=== PATIENT | female | born 1990 | race American Indian/Alaskan Native ===

== ENCOUNTER 2016-07-15 09:47 | Emergency (ER) | payer SELFPAY ==
[2016-07-15 09:58] VITALS: BP 117/78
--- NOTE | 2016-07-15 12:53 | Emergency Department Report ---
ED ENT HPI - General Chief complaint: Dental/Oral Stated complaint: TOOTHACHE Time Seen by Provider: 07/15/16 12:16 Source: patient Mode of arrival: Ambulatory Limitations: No Limitations - History of Present Illness Initial comments: PT c/o intermittent tooth/ jaw pain x 4 months. PT states the pain has been constant for 1 month. PT states her last dental visit was 1 year ago. PT states she has tried using Tylenol #3, [place], and oragel for the pain. PT states she is currently using a toothpaste with peroxide. MD complaint: tooth pain Onset/Timin -: Gradual, month(s) Location: other (R lower teeth, L upper and lower teeth pain ) Severity scale (0 -10): 8 Quality: aching, sharp Improves with: other medication ([place] ) Worsens with: eating Context- Dental: poor dental care Associated Symptoms: toothache. denies: fever, cough, gum swelling - Related Data Previous Rx's Medication Instructions Recorded Last Taken Type Cephalexin [Keflex] 500 mg PO BID #14 capsule 06/01/14 Unknown Rx Allergies Allergy/AdvReac Type Severity Reaction Status Date / Time No Known Allergies Allergy Unverified 06/01/14 16:32 ED Dental HPI - General Chief complaint: Dental/Oral Stated complaint: TOOTHACHE Time Seen by Provider: 07/15/16 12:16 Source: patient Mode of arrival: Ambulatory Limitations: No Limitations - Related Data Previous Rx's Medication Instructions Recorded Last Taken Type Cephalexin [Keflex] 500 mg PO BID #14 capsule 06/01/14 Unknown Rx Allergies Allergy/AdvReac Type Severity Reaction Status Date / Time No Known Allergies Allergy Unverified 06/01/14 16:32 ED Review of Systems ROS: Stated complaint: TOOTHACHE Other details as noted in HPI Comment: All other systems reviewed and negative Constitutional: denies: chills, fever ENT: ear pain (L @ times ), dental pain Gastrointestinal: denies: abdominal pain Skin: denies: rash Neurological: headache (at times ) ED Past Medical Hx - Past Medical History Previous Medical History?: Yes Additional medical history: Childbirth by - Surgical History Additional Surgical History: x 1 - Social History Smoking Status: Current Every Day Smoker Substance Use Type: Alcohol, Non Opiate Pain - Medications Home Medications: Home Medications Medication Instructions Recorded Confirmed Last Taken Type Cephalexin [Keflex] 500 mg PO BID #14 capsule 06/01/14 Unknown Rx ED Physical Exam - General Limitations: No Limitations General appearance: alert, in no apparent distress - Head Head exam: Present: atraumatic, normocephalic, normal inspection - Eye Eye exam: Present: normal appearance, PERRL, EOMI. Absent: conjunctival injection - ENT ENT exam: Present: normal orophraynx, mucous membranes moist, TM's normal bilaterally, normal external ear exam - Expanded ENT Exam Expanded Mouth exam: Absent: drooling, trismus Teeth exam: Present: dental caries (multiple ), dental tenderness # (tooth 17 with significant decay and tenderness. No dental abscess noted. ), other (PT with red food debris on multiple teeth) - Neck Neck exam: Present: normal inspection, full ROM. Absent: tenderness, lymphadenopathy - Respiratory Respiratory exam: Absent: respiratory distress - Cardiovascular Cardiovascular Exam: Present: regular rate, normal rhythm - Extremities Exam Extremities exam: Present: normal inspection, full ROM - Back Exam Back exam: Present: normal inspection, full ROM - Neurological Exam Neurological exam: Present: alert, oriented X3, normal gait - Psychiatric Psychiatric exam: Present: normal affect, normal mood - Skin Skin exam: Present: warm, dry, intact ED Course Vital Signs 07/15/16 09:55 Temperature 98 F Pulse Rate 78 Respiratory 18 Rate Blood Pressure 117/78 O2 Sat by Pulse 98 Oximetry - Reevaluation(s) Reevaluation #1: 07/15/16 12:58 PT aware she will need to follow up with Dentist. PT advised to use Sensody[employer] toothpaste and to have good oral hygiene. PT verbalizes understanding. - Pulse Oximetry Interpretation Digit-Finger Initial Pulse Oximetry Readin Actions Taken: none ED Medical Decision Making - Differential Diagnosis toothache, dental caries, dental abscess, om Critical care attestation.: If time is entered above; I have spent that time in minutes in the direct care of this critically ill patient, excluding procedure time. ED Disposition Clinical Impression: Toothache, Dental decay Disposition: DISCHARGED TO HOME OR SELFCARE Is pt being admited?: No Does the pt Need Aspirin: No Condition: Stable Instructions: Dental Caries (ED), Toothache (ED) Additional Instructions: No driving or ETOH after taking Ultram finish all antibiotics Follow up with Dentist this week Try using a toothpaste for sensitive teeth Referrals: PRIMARY CARE, [Primary Care Provider] - 3-5 Days Time of Disposition: 13:00
[2016-07-15] MEDS ORDERED: TRIMOX PO ONE (13:02)
[2016-07-15] MEDS ORDERED: MOTRIN PO ONE (13:02)
== END 2016-07-15 13:10 | disposition home or self-care (01) ==
LOC: ED 09:47
DX: K08.89 Other specified disorders of teeth and supporting structures (principal); K02.9 Dental caries, unspecified; F17.200 Nicotine dependence, unspecified, uncomplicated
CPT/HCPCS: 99282

== ENCOUNTER 2016-09-11 20:27 | Emergency (ER) | payer MEDICAID ==
[2016-09-11 21:00] VITALS: BP 131/91
[2016-09-11 22:00] LABS: Bacteria,Urine 2+ /HPF (Negative); Bilirubin,Urine NEG (Negative); Blood,Urine LG (Negative); Ketones,Urine 20 mg/dL (Negative); Leukocyte Esterase,Urine LG (Negative); Mucus,Urine 1+ /HPF; Nitrite,Urine NEG (Negative); Urobilinogen,Urine < 2.0 mg/dL (<2.0)
--- NOTE | 2016-09-11 22:33 | Emergency Department Report ---
ED Back Pain/Injury HPI - General Chief Complaint: Fall Stated Complaint: FELL/NECK/BACK PAIN Time Seen by Provider: 09/11/16 21:52 Source: patient Limitations: No Limitations - History of Present Illness MD Complaint: back injury -: Sudden Time: 03:29 (yesterday ) Similar Symptoms Previously: No Place: home Radiation: other (bilat shoulders) Severity scale (0 -10): 4 Quality: sharp Consistency: intermittent Improves With: other (rest) Worsens With: movement Context: fall Associated Symptoms: denies: weakness, numbness, difficulty walking, difficulty urinating, incontinence, nausea/vomiting, seizure, shortness of breath Treatments Prior to Arrival: other (nothing ) - Related Data Previous Rx's Medication Instructions Recorded Last Taken Type Amoxicillin 500 mg PO BID #20 capsule 07/15/16 Unknown Rx Ibuprofen [Motrin] 600 mg PO Q8H PRN #15 tablet 07/15/16 Unknown Rx traMADol [Ultram] 50 mg PO Q6HR PRN #12 tablet 07/15/16 Unknown Rx Cephalexin [Keflex] 500 mg PO Q12HR #14 cap 09/11/16 Unknown Rx Cyclobenzaprine [Flexeril] 10 mg PO TID PRN #30 tablet 09/11/16 Unknown Rx Naproxen [Naprosyn TAB] 500 mg PO BID PRN #60 tablet 09/11/16 Unknown Rx Allergies Allergy/AdvReac Type Severity Reaction Status Date / Time No Known Allergies Allergy Unverified 06/01/14 16:32 ED Review of Systems ROS: Stated complaint: FELL/NECK/BACK PAIN Other details as noted in HPI Constitutional: denies: chills, fever Eyes: denies: eye pain, eye discharge, vision change ENT: denies: ear pain, throat pain Respiratory: denies: cough, shortness of breath, wheezing Cardiovascular: denies: chest pain, palpitations Endocrine: no symptoms reported Gastrointestinal: denies: abdominal pain, nausea, diarrhea Genitourinary: denies: urgency, dysuria, discharge Musculoskeletal: back pain, myalgia Skin: denies: rash, lesions Neurological: denies: headache, weakness, paresthesias Psychiatric: denies: anxiety, depression Hematological/Lymphatic: denies: easy bleeding, easy bruising ED Past Medical Hx - Past Medical History Previous Medical History?: No Additional medical history: Childbirth by - Surgical History Past Surgical History?: Yes Additional Surgical History: x 1 - Social History Smoking Status: Current Every Day Smoker Substance Use Type: Alcohol, Marijuana - Medications Home Medications: Home Medications Medication Instructions Recorded Confirmed Last Taken Type Amoxicillin 500 mg PO BID #20 capsule 07/15/16 Unknown Rx Ibuprofen [Motrin] 600 mg PO Q8H PRN #15 tablet 07/15/16 Unknown Rx traMADol [Ultram] 50 mg PO Q6HR PRN #12 tablet 07/15/16 Unknown Rx Cephalexin [Keflex] 500 mg PO Q12HR #14 cap 09/11/16 Unknown Rx Cyclobenzaprine [Flexeril] 10 mg PO TID PRN #30 tablet 09/11/16 Unknown Rx Naproxen [Naprosyn TAB] 500 mg PO BID PRN #60 tablet 09/11/16 Unknown Rx ED Physical Exam - General Limitations: No Limitations General appearance: alert, in no apparent distress - Head Head exam: Present: atraumatic, normocephalic - Neck Neck exam: Present: normal inspection, full ROM. Absent: tenderness (right lateral muscular pain ) - Respiratory Respiratory exam: Present: normal lung sounds bilaterally. Absent: respiratory distress - Cardiovascular Cardiovascular Exam: Present: regular rate, normal rhythm. Absent: systolic murmur, diastolic murmur, rubs, gallop - GI/Abdominal GI/Abdominal exam: Present: soft, normal bowel sounds - Rectal Rectal exam: Present: deferred - Extremities Exam Extremities exam: Present: normal inspection - Back Exam Back exam: Present: normal inspection, tenderness, muscle spasm. Absent: CVA tenderness (L), paraspinal tenderness, vertebral tenderness, rash noted - Neurological Exam Neurological exam: Present: alert, oriented X3 - Psychiatric Psychiatric exam: Present: normal affect, normal mood - Skin Skin exam: Present: warm, dry, intact, normal color. Absent: rash ED Course Vital Signs 09/11/16 20:55 Temperature 98.3 F Pulse Rate 72 Respiratory 18 Rate Blood Pressure 131/91 O2 Sat by Pulse 100 Oximetry ED Medical Decision Making - Lab Data ua noted for uti - Medical Decision Making pt presents s/p glf 1 day ago no loc complaining of generalized back pain and neck pain radiating to right shoulder pt denies weakness no numbness no tingling , no paresthesia, no loss or decrease in bowel or bladder function pt denies fever no chills , incidental finding UA noted for UTI, HCG negative, pt denies dysuria no urgency no frequency no vaginal discharge no pelvic pain LMP 4 weeks ago, pt denies sexual contact, dc to home with keflex 500 mg po bid x 7 days pt will follow up with primary care doctor in 1 week Critical care attestation.: If time is entered above; I have spent that time in minutes in the direct care of this critically ill patient, excluding procedure time. ED Disposition Clinical Impression: Upper back strain, UTI (urinary tract infection) Disposition: DC-01 TO HOME OR SELFCARE Is pt being admited?: No Does the pt Need Aspirin: No Condition: Good Instructions: Back Pain (ED), Urinary Tract Infection in Women (ED) Prescriptions: Cephalexin [Keflex] 500 mg PO Q12HR #14 cap Cyclobenzaprine [Flexeril] 10 mg PO TID PRN #30 tablet PRN Reason: Muscle Spasm Naproxen [Naprosyn TAB] 500 mg PO BID PRN #60 tablet PRN Reason: Pain Referrals: PRIMARY CARE, [Primary Care Provider] - 3-5 Days Forms: Work/School Release Form(ED) Time of Disposition: 22:47
[2016-09-11] MEDS ORDERED: KEFLEX PO ONE (22:42)
[2016-09-11] MEDS ORDERED: ULTRAM PO ONE (22:42)
== END 2016-09-11 23:10 | disposition home or self-care (01) ==
LOC: ED 20:27
DX: S29.012A Strain of muscle and tendon of back wall of thorax, initial encounter (principal); N39.0 Urinary tract infection, site not specified; F17.200 Nicotine dependence, unspecified, uncomplicated; F12.10 Cannabis abuse, uncomplicated; X58.XXXA Exposure to other specified factors, initial encounter; Y93.9 Activity, unspecified; Y92.9 Unspecified place or not applicable; Y99.9 Unspecified external cause status
CPT/HCPCS: 81001; 81025; 99283